=== PATIENT | male | born 1925 | race Caucasian/White ===

== ENCOUNTER 2017-08-29 13:59 | Inpatient (IN) | payer OTHER ==
[~2017-08-29] VITALS: Ht 182.9 cm; Wt 85.0 kg
[~2017-08-29 13:59] MED LIST: CALCIUM 600 +1 EAC1 PO; CALCIUM 600 +1 EAC3 PO; FUROSEMIDE40 MG PO; LASIX20 MG PO; LEVAQUIN500 MG PO; SYMBICORT60 INHALAT IH
[2017-08-29 14:51] LABS: BASOPHIL (%) 0.3 % (0-1); EOSINOPHIL (%) 2.4 % (0-5); EOSINOPHIL COUNT 0.3 K/uL (0-0.3); HEMOGLOBIN 15.5 G/DL (12.5-16.6); IMMATURE GRANULOCYTE (%) 0.3 % (0.0-0.7); LYMPHOCYTE (%) 9.8 % (15-42); MCH 31.6 PG (29.0-34.0); MCV 95.9 FL (86-99); MONOCYTE (%) 7.5 % (3-12); MONOCYTE COUNT 0.8 K/uL (0-0.8); NEUTROPHIL (%) 79.7 % (45-76); NEUTROPHIL COUNT 8.4 K/uL (1.8-6.4); PLATELET COUNT 179 K/uL (156-360); RBC DIS.WIDTH-CV 14.1 % (11.8-14.6); RBC DIS.WIDTH-SD 49.8 % (39-53); WHITE BLOOD COUNT 10.5 K/uL (4.1-10.2)
[2017-08-29 15:02] LABS: ALBUMIN 3.8 g/dL (3.2-4.8); CHLORIDE 95 mEq/L (99-109); POTASSIUM 4.6 mEq/L (3.7-5.4); SODIUM 138 mEq/L (136-147)
[2017-08-29 15:04] LABS: GLUCOSE 104 mg/dL (70-99)
[2017-08-29 15:06] LABS: TOTAL BILIRUBIN 0.7 mg/dL (0.0-1.0)
[2017-08-29 15:08] LABS: ALKALINE PHOSPHATASE 91 IU/L (3-129); CREATININE 1.7 mg/dL (0.6-1.3); GFR ESTIMATE (CALCULATED) 41 mL/min/ (58.99-99999)
[2017-08-29 15:09] LABS: UREA NITROGEN (BUN) 30 mg/dL (9-23)
[2017-08-29 15:10] LABS: AST (GOT) 24 IU/L (2-34)
[2017-08-29 15:11] LABS: ALT (GPT) 20 IU/L (3-49)
[2017-08-29 15:14] LABS: TROP-I INTERPRETATION NEGATIVE; TROPONIN-I 0.06 ng/mL (0.0-0.30)
[2017-08-29] MEDS ORDERED: CLARITIN,ALAVAR10 MG PO (16:32)
[2017-08-29] MEDS ORDERED: ALEVE220 MG PO (16:32)
[2017-08-29] MEDS ORDERED: CYANOCOBAL1000 MCG/2 IM (16:33)
[2017-08-29] MEDS ORDERED: ALBUTEROL2.5 MG/3 M IH (16:33)
[2017-08-29] MEDS ORDERED: FUROSEMIDE40 MG PO (16:33)
[2017-08-29 18:23] VITALS: BP 157/80
[2017-08-29 20:07] VITALS: BP 145/65
[2017-08-29 23:38] LABS: APPEARANCE CLEAR ((CLEAR)); BILIRUBIN NEGATIVE; BLOOD NEGATIVE; COLOR YELLOW ((YELLOW)); GLUCOSE (STRIP) NEGATIVE; KETONES NEGATIVE; LEUKOCYTES NEGATIVE; NITRITE NEGATIVE; PROTEIN (STRIP) NEGATIVE; SPECIFIC GRAVITY 1.008 (1.000-1.030); UCUL ADDED? NO; UROBILINOGEN 0.2 MG/DL (0.2-1.0)
[2017-08-30] VITALS (8 sets, daily range): BP systolic 109–142; BP diastolic 58–77
[2017-08-31 07:52] VITALS: BP 131/69
[2017-08-31 16:18] VITALS: BP 127/64
[2017-08-31 21:08] VITALS: BP 129/65
[2017-09-01 00:13] VITALS: BP 122/65
[2017-09-01 08:24] VITALS: BP 132/67
[2017-09-01 16:26] VITALS: BP 146/70
[2017-09-01 23:33] VITALS: BP 146/65
[2017-09-02 05:56] LABS: CHLORIDE 104 MEQ/L (99-109); CREATININE 1.6 MG/DL (0.6-1.3); GFR ESTIMATE (CALCULATED) 43 mL/min/ (58.99-99999); GLUCOSE 140 mg/dL (70-99); POTASSIUM 4.5 MEQ/L (3.7-5.4); SODIUM 142 MEQ/L (136-147)
[2017-09-02 06:12] LABS: UREA NITROGEN (BUN) 57 mg/dL (9-23)
[2017-09-02 06:50] VITALS: BP 147/78
[2017-09-02 15:59] VITALS: BP 149/79
[2017-09-02 23:23] VITALS: BP 135/67
[2017-09-03 07:15] VITALS: BP 149/75
[2017-09-03 15:24] VITALS: BP 156/74
== END 2017-09-03 18:53 | disposition home or self-care (01) | DRG 192 ==
LOC: EME 13:59 → 5EAST 16:20 → EDOF 16:20 → ENRESERV 16:44 → 5EAST 18:07
PROVIDERS: Emergency Medicine; Internal Medicine
DX: J44.1 Chronic obstructive pulmonary disease with (acute) exacerbation (principal); R09.02 Hypoxemia; F03.90 Unspecified dementia, unspecified severity, without behavioral disturbance, psychotic disturbance, mood disturbance, and anxiety; I50.9 Heart failure, unspecified; Z87.891 Personal history of nicotine dependence
CPT/HCPCS: 71010; 80048; 80053; 81003; 83605; 83880; 84484; 85025; 87040; 87502; 93005; 94640; 94640 76; 94799; 99202; 99281; 99285; J0456; J0696; J2930; J3420

== ENCOUNTER 2017-09-16 13:22 | Emergency (ER) | payer OTHER ==
[~2017-09-16] VITALS: Ht 182.9 cm; Wt 79.2 kg
[~2017-09-16 13:22] MED LIST changes: +ALBUTEROL2.5 MG/3 M IH; +ALEVE220 MG PO; +CLARITIN,ALAVAR10 MG PO; +CYANOCOBAL1000 MCG/2 IM
[2017-09-16 16:53] VITALS: BP 138/84
== END 2017-09-16 16:56 | disposition home or self-care (01) ==
LOC: EME 13:22
DX: J44.9 Chronic obstructive pulmonary disease, unspecified (principal); F03.90 Unspecified dementia, unspecified severity, without behavioral disturbance, psychotic disturbance, mood disturbance, and anxiety; I50.9 Heart failure, unspecified; Z87.891 Personal history of nicotine dependence; Z87.01 Personal history of pneumonia (recurrent)
CPT/HCPCS: 71046; 93005; 99281; 99284